=== PATIENT | male | born 2000 | race Caucasian/White ===

== ENCOUNTER 2019-09-19 17:11 | Emergency (ER) | payer OTHER ==
--- NOTE | 2019-09-19 18:05 | CT ---
CT BRAIN NONCONTRAST: 09/19/19 HISTORY: 19-year-old male status acute head trauma. FINDINGS: The ventricles are normal in size and configuration. There is no midline shift or any other mass eff ect. There is no evidence of acute intracranial hemorrhage, large cortical infarct, or extraaxial fl uid collection. The cabrera matter /white matter differentiation is maintained. The calvarium is intac t. The tympanomastoid cavities, and the upper portions of the paranasal sinuses included in these im ages, are grossly clear. IMPRESSION: Normal. jn [] POS: JIN
--- NOTE | 2019-09-19 18:07 | CT ---
CT CERVICAL SPINE NONCONTRAST: 09/19/19 HISTORY: 19-year-old male status post acute cervical trauma. FINDINGS: Alignment is normal. The vertebral body heights are maintained. Disc spaces are maintained. There is no evidence of acute fracture. There is no evidence of high grade central spinal canal stenosis or hi gh grade neuroforaminal stenosis. There are no high grade degenerative facet changes. There is no p revertebral soft tissue swelling. There is loss of lordosis, which could be due to positioning, cervi naomi collar or muscle spasm. IMPRESSION: Normal. jnr POS: JIN
== END 2019-09-19 18:12 | disposition home or self-care (01) ==
LOC: ERS 17:11
DX: S06.0X0A Concussion without loss of consciousness, initial encounter (principal); F17.220 Nicotine dependence, chewing tobacco, uncomplicated; W22.8XXA Striking against or struck by other objects, initial encounter
CPT/HCPCS: 70450; 72125